=== PATIENT | female | born 1995 | race Two or more races ===

== ENCOUNTER 2022-10-21 19:13 | Emergency (ER) | payer OTHER ==
[2022-10-21 19:19] VITALS: BP 122/80; PULSE 83; RESP 18; TEMP 98.4; BMI 26.9
[2022-10-21] MEDS ORDERED: IBUPROFEN 600 MG TABLET (FP) PO ONE ×2 (20:11→20:13)
== END 2022-10-21 21:03 | disposition home or self-care (01) ==
LOC: JERFT 19:13
PROC: 2W3EX1Z Immobilization of Right Hand using Splint (ICD-10-PCS; principal; 2022-10-21)
DX: M25.531 Pain in right wrist (principal); V00.11 In-line roller-skate accident
CPT/HCPCS: 73110-TC-RT-FY; 73130-TC-RT-FY; 99283-25